=== PATIENT | male | born 1995 | race African-American/Black ===

== ENCOUNTER 2022-11-11 15:38 | Inpatient (IN) | payer OTHER ==
[~2022-11-11] VITALS: Ht 190.5 cm; Wt 95.3 kg
[2022-11-11 16:18] LABS: BASOPHILS # (AUTO) 0.1 K/uL (0.0-0.2); BASOPHILS % (AUTO) 0.6 % (0.0-2.0); EOSINOPHILS % (AUTO) 0.1 % (0.0-6.0); HEMATOCRIT 44 % (39-51); HEMOGLOBIN 14.7 g/dL (13.5-17.5); LYMPHOCYTES # (AUTO) 1.7 K/uL (0.8-4.8); LYMPHOCYTES % (AUTO) 9.9 % (20.0-44.0); MEAN CORPUSCULAR HEMOGLOBIN 29 PG (26.0-33.0); MEAN CORPUSCULAR HGB CONC 34 g/dl (31.0-36.0); MEAN CORPUSCULAR VOLUME 85 fL (80-96); MONOCYTES # (AUTO) 1.2 K/uL (0.1-1.30); MONOCYTES % (AUTO) 7.3 % (2.0-12.0); NEUTROPHILS # (AUTO) 13.9 K/uL (1.8-8.9); NEUTROPHILS % (AUTO) 82.1 % (43.0-81.0); PLATELET COUNT (AUTO) 269 K/uL (150-450); RED BLOOD CELL COUNT(AUTO) 5.15 MIL/uL (4.5-6.0); RED CELL DISTRIBUTION WIDTH 12.6 % (11.5-15.0); WHITE BLOOD COUNT (AUTO) 16.9 K/uL (4.3-11.0)
[2022-11-11 16:27] LABS: C-REACTIVE PROTEIN 5.8 mg/dL (0.0-0.9); CALCIUM, SERUM 9.7 mg/dL (8.5-10.1); CREATININE 1.3 mg/dL (0.6-1.3); POTASSIUM 3.6 mmol/L (3.5-5.1)
[2022-11-11 16:31] LABS: ERYTHROCYTE SEDIMENTATION RATE 26 MM/HR (0-15)
[2022-11-11] MEDS ORDERED: IOHEXOL-300 100 ML VIAL IV ONE (17:02)
[2022-11-11] MEDS ORDERED: IV NS 0.9% 250 ML IV ONE (17:03)
[2022-11-11] MEDS ORDERED: CEFEPIME 1 GM in IV D5W 50 ML IV ONE (18:30)
[2022-11-11] MEDS ORDERED: VANCOMYCIN 1 GM in IV D5W 250 ML IV ONE (18:30)
[2022-11-11 19:03] VITALS: O2SAT 98
[2022-11-11] MEDS ORDERED: BUPIVACAINE 0.5 % PF 150 MG/30 ML VIAL ONE (19:30)
[2022-11-11] MEDS ORDERED: LIDOCAINE 1%-EPI 1:100,000 20 ML VIAL ONE (19:30)
[2022-11-11] MEDS ORDERED: ANESTHESIA TRAY IN PYXIS 1 EA TRAY MC ONE (19:30)
[2022-11-11] MEDS ORDERED: ROCURONIUM BROMIDE 50 MG/5 ML ONE (19:49)
[2022-11-11] MEDS ORDERED: FAMOTIDINE/PF INJ 20 MG/2 ML VIAL IV ONE (19:49)
[2022-11-11] MEDS ORDERED: MIDAZOLAM HCL 2 MG/2ML VIAL ONE (19:49)
[2022-11-11] MEDS ORDERED: FENTANYL PF 100MCG/2ML AMPUL ONE (19:49)
[2022-11-11] MEDS ORDERED: METRONIDAZOLE 500MG/ NS 100ML 100 ML IV SCH (20:30)
[2022-11-11] MEDS ORDERED: ONDANSETRON HCL/PF 4 MG/2 ML VIAL IVP PRN (20:30)
[2022-11-11] MEDS ORDERED: CEFAZOLIN 1 GM in IV D5W 50 ML IV SCH (20:30)
[2022-11-11] MEDS ORDERED: MORPHINE SULFATE INJ 2 MG/ML DISP.SYRIN IV PRN (20:30)
[2022-11-11] MEDS ORDERED: IBUPROFEN 800 MG TABLET PO PRN (20:30)
[2022-11-11] MEDS ORDERED: HYDROCODONE/APAP 5/325MG TABLET PO PRN ×2 (20:30)
[2022-11-11] MEDS ORDERED: HYDROGEN PEROXIDE 480 ML BOTTLE ONE (20:39)
[2022-11-11] MEDS ORDERED: HYDROMORPHONE INJ 2 MG/ML DISP.SYRIN ONE (20:57)
[2022-11-11] MEDS ORDERED: IBUPROFEN 400 MG TABLET PO PRN (21:00)
[2022-11-11] MEDS: ACETAMINOPHEN 325 MG TABLET PO PRN (21:59)
[2022-11-11] MEDS ORDERED: VANCOMYCIN 1 GM /D5W 250 ML PB IV ONE (23:23)
[2022-11-12] VITALS: BP 122/68; TEMP 98; O2SAT 100
[2022-11-12] MEDS ORDERED: VANCOMYCIN 1 GM in IV D5W 250 ML IV ONE ×2
[2022-11-12] MEDS: CEFAZOLIN 1 GM in IV D5W 50 ML IV SCH ×4 (00:57→20:18)
[2022-11-12 01:00] VITALS: BP 137/72; TEMP 97.9
[2022-11-12] MEDS: METRONIDAZOLE 500MG/ NS 100ML 100 ML IV SCH ×2 (02:26→08:37)
[2022-11-12 07:38] LABS: BASOPHILS % (AUTO) 0.2 % (0.0-2.0); EOSINOPHILS % (AUTO) 0.1 % (0.0-6.0); HEMATOCRIT 40 % (39-51); HEMOGLOBIN 13.7 g/dL (13.5-17.5); LYMPHOCYTES # (AUTO) 1.8 K/uL (0.8-4.8); LYMPHOCYTES % (AUTO) 10.5 % (20.0-44.0); MEAN CORPUSCULAR HEMOGLOBIN 29 PG (26.0-33.0); MEAN CORPUSCULAR HGB CONC 34 g/dl (31.0-36.0); MEAN CORPUSCULAR VOLUME 85 fL (80-96); MONOCYTES # (AUTO) 1.8 K/uL (0.1-1.30); MONOCYTES % (AUTO) 10.2 % (2.0-12.0); NEUTROPHILS # (AUTO) 13.6 K/uL (1.8-8.9); PLATELET COUNT (AUTO) 242 K/uL (150-450); RED BLOOD CELL COUNT(AUTO) 4.73 MIL/uL (4.5-6.0); RED CELL DISTRIBUTION WIDTH 12.5 % (11.5-15.0); WHITE BLOOD COUNT (AUTO) 17.3 K/uL (4.3-11.0)
[2022-11-12 08:00] VITALS: BP 124/78; TEMP 98.2; O2SAT 97
[2022-11-12 08:03] LABS: ALBUMIN 3.5 g/dL (3.4-5.0); BILIRUBIN,TOTAL 2.4 mg/dL (0.2-1.0); CALCIUM, SERUM 9.1 mg/dL (8.5-10.1); CREATININE 1.3 mg/dL (0.6-1.3); POTASSIUM 3.5 mmol/L (3.5-5.1); TOTAL PROTEIN, SERUM 7.2 g/dL (6.4-8.2)
[2022-11-12] MEDS: DAKINS QUARTER STRENGTH (0.125%) 480 ML BOTTLE TOP SCH (12:43)
[2022-11-12 16:00] VITALS: BP 129/65; TEMP 99.8; O2SAT 99
[2022-11-12] MEDS: METRONIDAZOLE 500MG/ NS 100ML 500 MG in PREMIX 1 EA IV SCH ×2 (16:18→20:59)
[2022-11-12] MEDS ORDERED: IV NS 0.9% 1,000 ML IV PRN (17:00)
[2022-11-12] MEDS: VANCOMYCIN 1 GM in IV D5W 250ml IV SCH ×2 (17:41→22:46)
[2022-11-12] MEDS: ACETAMINOPHEN 325 MG TABLET PO PRN (19:04)
[2022-11-12 20:00] VITALS: BP 114/60; TEMP 99.5; O2SAT 99
[2022-11-13] MEDS: CEFAZOLIN 1 GM in IV D5W 50 ML IV SCH ×2 (04:04→12:07)
[2022-11-13] MEDS: ACETAMINOPHEN 325 MG TABLET PO PRN (04:12)
[2022-11-13 04:13] VITALS: TEMP 99.9
[2022-11-13] MEDS: METRONIDAZOLE 500MG/ NS 100ML 500 MG in PREMIX 1 EA IV SCH ×2 (04:43→12:56)
[2022-11-13 05:52] LABS: BASOPHILS % (AUTO) 0.3 % (0.0-2.0); EOSINOPHILS # (AUTO) 0.1 K/uL (0.0-0.7); EOSINOPHILS % (AUTO) 0.8 % (0.0-6.0); HEMATOCRIT 40 % (39-51); HEMOGLOBIN 13.8 g/dL (13.5-17.5); LYMPHOCYTES # (AUTO) 1.5 K/uL (0.8-4.8); LYMPHOCYTES % (AUTO) 11.3 % (20.0-44.0); MEAN CORPUSCULAR HEMOGLOBIN 29 PG (26.0-33.0); MEAN CORPUSCULAR HGB CONC 34 g/dl (31.0-36.0); MEAN CORPUSCULAR VOLUME 85 fL (80-96); MONOCYTES # (AUTO) 1.4 K/uL (0.1-1.30); MONOCYTES % (AUTO) 10.7 % (2.0-12.0); NEUTROPHILS % (AUTO) 76.9 % (43.0-81.0); PLATELET COUNT (AUTO) 229 K/uL (150-450); RED BLOOD CELL COUNT(AUTO) 4.75 MIL/uL (4.5-6.0); RED CELL DISTRIBUTION WIDTH 12.3 % (11.5-15.0)
[2022-11-13] MEDS: VANCOMYCIN 1 GM in IV D5W 250ml IV SCH ×2 (06:02→15:00)
[2022-11-13 06:25] LABS: CALCIUM, SERUM 8.9 mg/dL (8.5-10.1); CREATININE 1.1 mg/dL (0.6-1.3); MAGNESIUM 2.2 mg/dL (1.8-2.4); PHOSPHORUS 3.4 mg/dL (2.5-4.9); POTASSIUM 3.6 mmol/L (3.5-5.1)
[2022-11-13 08:00] VITALS: BP 126/71; TEMP 98.8; O2SAT 97
[2022-11-13] MEDS: DAKINS QUARTER STRENGTH (0.125%) 480 ML BOTTLE TOP SCH (09:04)
[2022-11-13] MEDS ORDERED: IBUP-1958 PO (13:03)
[2022-11-13] MEDS ORDERED: SULF1TAB48 PO (13:03)
[2022-11-13] MEDS ORDERED: HYDR-3972 PO (13:03)
[2022-11-13] MEDS ORDERED: CEFP200T14 PO (13:03)
[2022-11-13] MEDS ORDERED: METR500T PO (13:03)
[2022-11-13] MEDS ORDERED: DOCU-141 PO (13:03)
== END 2022-11-13 15:00 | disposition home health service (06) | DRG 710 ==
LOC: ER 15:52 → MED 19:53
PROVIDERS: ADMIT Nurse Practitioner Acute Care; ATTEND Nurse Practitioner Acute Care
PROC: 0D9Q0ZZ Drainage of Anus, Open Approach (ICD-10-PCS; principal; 2022-11-11)
PROC: 0DJD8ZZ Inspection of Lower Intestinal Tract, Via Natural or Artificial Opening Endoscopic (ICD-10-PCS; 2022-11-11)
DX: A41.9 Sepsis, unspecified organism (principal); E87.1 Hypo-osmolality and hyponatremia; K61.0 Anal abscess; L02.31 Cutaneous abscess of buttock; E86.1 Hypovolemia; F12.90 Cannabis use, unspecified, uncomplicated
CPT/HCPCS: 36415; 72193-TC; 80048-TC; 80053-TC; 80202-TC; 83735-TC; 84100-TC; 85025-TC; 85652-TC; 86140-TC; A4216; A4223; A6253; G0378; J0690; J0692; J1100; J1170; J2250; J2270; J2405; J2704; J2765; J3010; J3370; J3490; J7030; J7050; J7060; Q9967